=== PATIENT | male | born 2000 | race Two or more races ===

== ENCOUNTER 2019-11-13 17:37 | Emergency (ER) | payer SELFPAY ==
[~2019-11-13] VITALS: Ht 175.3 cm; Wt 72.6 kg
[2019-11-13 17:45] VITALS: BP 147/79
[2019-11-13] MEDS ORDERED: Thiamine 100mg tab ORAL ONE (17:45)
[2019-11-13] MEDS ORDERED: Naloxone 0.4mg/ml Inj IVP ONE (17:45)
--- NOTE | 2019-11-13 17:46 | Emergency Room Report ---
History of Present Illness General Chief Complaint: Overdose Source: Patient ([place]) Present Illness HPI Patient is a 19-year-old male with past medical history of polysubstance abuse who presents by ambulance with altered mental status. Patient endorses using "a lot more fentanyl this morning than [he] normally does ". He also admits to taking methamphetamines, smoking fentanyl, and drinking alcohol. He denies any subjective complaint of pain of the head, neck, back, chest, or abdomen, or any fever, rash, chills, diarrhea, dysuria, melena, hematochezia, or flank pain. According to EMS, patient was picked up from [employer] store prior to arrival. No narcan given prior to arrival. Patient currently only has complaint "I feel dehydrated" and "I need to poop" and "can everyone just leave me alone so I can sleep" The patient's symptoms were gradual onset, severity was moderate, duration since 1 day. Quality: dehydrated Past medical history: polysubstance abuse Past surgical history: denies Smoking: ++ Alcohol use: daily Drug use: ++meth, fentanyl Review of systems: CONST: No fevers or chills, No night sweats PULMONARY: No productive cough, No shortness of breath CARDIAC: No chest pain, No palpitations GI: No vomiting, No diarrhea , No melena_or_BRBPR : No dysuria, No hematuria, No discharge NEURO: No new_focal_weakness_or_numbness, No confusion, No vision changes 14 point Review of Systems is otherwise negative except per HPI Physical Exam: GENERAL: Awake_alert_ nontoxic, no acute distress Spo2 98% on RA -normal. Sleepy EYES: Pinpoint pupils. PERRLA. Extraocular muscles are intact. Conjunctivae clear. Lids without swelling ENT: External nose and ear normal_in_appearance. Oropharynx clear. Head_ atraumatic, Moist_oral_mucosa. No oral trauma NECK: No JVD. No meningismus. No thyromegaly. Supple. Trachea midline RESP: Normal respiratory effort. Symmetric rise. No stridor. Clear_to_ auscultation_No_rales_No_wheezes. No apnea CARDIAC: Regular rate and regular rhytm. No_significant pedal edema. No murmurs auscultated. ABDOMEN: Soft. Nondistended. Nontender_No_rebound_or_guarding. MSK: Normal muscle tone, without rigidity. Extremities without asymmetric deformity or swelling. SKIN: Warm and dry. No visible cyanosis or pallor. No rash. Old track hilliard to bilateral antecubital fossa. NEUROLOGIC: Alert, oriented x3 but sleepy. Motor_and_sensation_grossly_intact. No truncal ataxia. Gait_normal Psych: Normal mood and affect, normal judgment and insight - COORDINATION OF CARE Case was discussed with: Patient Any labs and imaging that were ordered were interpreted as part of the medical decision making: Medical Decision Making/Plan: Differential diagnosis includes opiate overdose, alcohol intoxication, alcohol withdrawal, hypoglycemia, drug intoxication or overdose, head injury, epidural hematoma, subdural hematoma, among others. Patient arrived sleepy with pinpoint pupils. No episodes of apnea or aspiration were noted. Narcan 0.4mg IV was given with resolution of sleepiness. His fingerstick glucose was found to be low so he was fed with improvement of his symptoms. Accuchek was WNL 1 hr later. Because of the patients initial altered mental status, imaging of the brain was obtained to rule out intracranial bleeding. CT was negative for ICH. Labs unremarkable. Trop negative. CK not drastically elevated. Salicylates/ tylenol negative. No stigmata or endocarditis found on exam. No cardiac murmur auscultated. The patient has no significant tremors or tachycardia, and their presentation seems most consistent with opiate OD. UDS is positive for meth The patient will be observed in the emergency department with serial neurologic exams for improvement in their mental status. Patient return to normal baseline. Patient refused social work/resources for homeless. All needs met. Patient was fed I counseled him extensively on the need to avoid doing drugs and drinking alcohol. - REASSESSMENT - After serial neurologic exams in the emergency department, the patients mental status significantly improved. The patient was able to follow commands and is clinically sober. They have no focal neurologic deficits and were able to ambulate with a steady gait without assistance. The patients presentation seems to be consistent with opiate OD, which has resolved, without any complications such as alcohol withdrawal, head injury, GI bleeding, or intracranial bleeding. The patient appears to be safe for discharge. Patient understands not to drive and appears able to care for themselves. (Lindsay Shi.[place]) Allergies: Coded Allergies: UNABLE TO ASSESS (Unverified , 11/13/19) COVID-19 Screening Contact w/high risk pt: No Experienced COVID-19 symptoms?: No COVID-19 Testing performed REVERSAL PRINT INSPECTOR: No (Lindsay Shi D.O.) Nursing Documentation-[facility] Past Medical History: Deferred (Lindsay Shi D.O.) Physical Exam Vital Signs Date Time Temp Pulse Resp B/P (MAP) Pulse Ox O2 Delivery O2 Flow Rate FiO2 11/13/19 17:29 98.1 92 16 150/80 (103) 93 Room Air Sp02 EP Interpretation: reviewed, normal (Lindsay Shi D.O.) Medical Decision Making Diagnostic Impression: Primary Impression: Opiate abuse, continuous Additional Impressions: Alcohol abuse Methamphetamine abuse Dehydration Hypoglycemia ER Course Assumed care of the patient from the previous provider at approximately 2200 hrs. Please refer to initial note for full history and physical exam. Briefly, 19-year-old male history of polysubstance abuse presents for evaluation of overdose suspected opiates and confirm methamphetamine. Patient is been treated with Narcan. No respiratory compromise. He remained somnolent and required further monitoring. He is now awake, alert, clinically sober and ambulating with a steady gait. Stable for outpatient follow-up. Previous provider provided a prescription for Narcan as well substance abuse resources. Stable for follow-up on outpatient basis. Instructed to return for new or worsening symptoms.. (Byron Lorenzana MD) EKG Diagnostic Results PA Scribe Text 12-lead EKG (interpreted by ) Time: 1800 Indication: Rhythm analysis Tracing visualized and Interpreted by . Rhythm: 86 Rate: 86 bpm QTc: 442 Morphology: No_significant_ST_elevations_or_depressions, No STEMI Impression: Normal_sinus_rhythm_without_significant_abnormality (Lindsay Shi D.O.) Chest X-Ray Diagnostic Results Chest X-Ray Diagnostic Results : [facility] [place] Chest X-Ray: Views: [ 1 ] view(s) Indication: Chest pain Findings: Normal heart size. Mediastinum normal. No infiltrate. Impression: NAD The X-ray(s) were independently viewed and interpreted contemporaneously Electronically signed by iLndsay singh DO (Lindsay Shi D.O.) CT/MRI/US Diagnostic Results CT/MRI/US Diagnostic Results : Impression CT Head no Contrast FINDINGS: Brain: Unremarkable. No hemorrhage. No significant white matter disease. No edema. Ventricles: Unremarkable. No ventriculomegaly. Bones/joints: Unremarkable. No acute fracture. Soft tissues: Unremarkable. Sinuses: Unremarkable as visualized. No acute sinusitis. Mastoid air cells: Unremarkable as visualized. No mastoid effusion. IMPRESSION: No acute intracranial pathology. (Lindsay Shi D.O.) Reevaluation Time: 18:11 Last Vital Signs Date Time Temp Pulse Resp B/P (MAP) Pulse Ox O2 Delivery O2 Flow Rate FiO2 11/13/19 17:29 98.1 92 16 150/80 (103) 93 Room Air Status: improved (Lindsay Shi D.O.) Disposition: HOME, SELF-CARE Admit Decision Time: 18:12 (Lindsay Shi D.O.) Condition: Stable Scripts Naloxone HCl (Narcan) 4 Mg [place] 4 MG NS ONCE for opiate od for 1 Day, #1 SPRAY Prov: Lindsay Shi D.O. 11/13/19 Patient Instructions: Alcohol Abuse and Nutrition, Alcohol Intoxication, Substance Use Disorder Additional Instructions: Instructions for patient/process coach: Follow up with your physician in 1-2 days. Stop doing methamphetamine. Stop doing narcotics. Stop drinking. All these things are bad for your health. Follow-up with your doctor sooner if your condition requires a more timely clinical reevaluation. Return to the emergency department immediately if you feel that your condition is worsening or if you have any new or concerning symptoms. Review your discharge instructions and take any prescriptions given as instructed. Lindsay Shi D.O. Nov 13, 2019 17:46 Byron Lorenzana MD Nov 13, 2019 22:42
--- NOTE | 2019-11-13 18:04 | Diagnostic Imaging Report ---
EXAM: CT Head Without Intravenous Contrast CLINICAL HISTORY: AMS TECHNIQUE: Axial computed tomography images of the head/brain without intravenous contrast. CTDI is 53 mGy and DLP is 992 mGy-cm. One or more of the following dose reduction techniques were used: automated exposure control, adjustment of the mA and/or kV according to patient size, use of iterative reconstruction technique. COMPARISON: No relevant prior studies available. FINDINGS: Brain: Unremarkable. No hemorrhage. No significant white matter disease. No edema. Ventricles: Unremarkable. No ventriculomegaly. Bones/joints: Unremarkable. No acute fracture. Soft tissues: Unremarkable. Sinuses: Unremarkable as visualized. No acute sinusitis. Mastoid air cells: Unremarkable as visualized. No mastoid effusion. IMPRESSION: No acute intracranial pathology.
[2019-11-13 18:19] LABS: BASOPHILS % (AUTO) 1.2 % (0.0-2.0); EOSINOPHILS % (AUTO) 3.7 % (0.0-3.0); HEMATOCRIT 41.6 % (42.0-52.0); HEMOGLOBIN 14.3 G/DL (14.2-18.0); LYMPHOCYTES % (AUTO) 38.9 % (20.0-45.0); MEAN CORPUSCULAR VOLUME 90 FL (80-99); MONOCYTES % (AUTO) 11.9 % (1.0-10.0); NEUTROPHILS % (AUTO) 44.3 % (45.0-75.0); PLATELET COUNT 310 K/UL (150-450); RED BLOOD COUNT 4.65 M/UL (4.70-6.10); RED CELL DISTRIBUTION WIDTH 11.7 % (11.6-14.8); WHITE BLOOD COUNT 9.5 K/UL (4.8-10.8)
[2019-11-13 18:31] LABS: ANION GAP 13 mmol/L (5-15); BLOOD UREA NITROGEN 16 mg/dL (7-18); CALCIUM 8.8 MG/DL (8.5-10.1); CARBON DIOXIDE 24 MMOL/L (21-32); CHLORIDE 107 MMOL/L (98-107); POTASSIUM 3.5 MMOL/L (3.5-5.1); SODIUM 144 MMOL/L (136-145)
[2019-11-13] MEDS ORDERED: NARCAN4 MG NS (18:37)
[2019-11-13 18:44] LABS: ALANINE AMINOTRANSFERASE 85 U/L (12-78); ALBUMIN 3.5 G/DL (3.4-5.0); ALBUMIN/GLOBULIN RATIO 0.8 (1.0-2.7); ALKALINE PHOSPHATASE 122 U/L (46-116); ASPARTATE AMINO TRANSFERASE 40 U/L (15-37); BILIRUBIN,TOTAL 0.4 MG/DL (0.2-1.0); CREATINE KINASE 96 U/L (26-308)
[2019-11-13 20:18] LABS: APPEARANCE,URINE CLEAR; BILIRUBIN, URINE NEGATIVE (NEGATIVE); GLUCOSE, URINE (UA) NEGATIVE (NEGATIVE); KETONES,URINE NEGATIVE (NEGATIVE); LEUKOCYTE ESTERASE ,URINE NEGATIVE (NEGATIVE); NITRITE,URINE NEGATIVE (NEGATIVE); PH,URINE 5 (4.5-8.0); PROTEIN,URINE NEGATIVE (NEGATIVE); UROBILINOGEN,URINE NORMAL MG/DL (0.0-1.0)
[2019-11-13 20:24] LABS: COLOR,URINE YELLOW
[2019-11-13] MEDS ORDERED: Naloxone 1mg/ml 2ml IVP ONE (21:15)
[2019-11-13 22:50] VITALS: BP 132/72
--- NOTE | 2019-11-14 11:48 | Diagnostic Imaging Report ---
Procedure: XRAY Chest 1v Reason for study: Reason For Exam: COUGH Comparison films: None. FINDINGS: A single one view chest is obtained. Vascularity is normal. The lung mayers are clear bilaterally. Cardiac and mediastinal silhouette are within normal limits. CP angles are sharp. The bony thorax appear unremarkable. IMPRESSION: NO ACUTE CARDIOPULMONARY DISEASE.
== END 2019-11-13 22:50 | disposition home or self-care (01) ==
LOC: EDBD 17:37 → EMR 17:50
DX: F11.10 Opioid abuse, uncomplicated (principal); F10.10 Alcohol abuse, uncomplicated; F15.10 Other stimulant abuse, uncomplicated; E86.0 Dehydration; E16.2 Hypoglycemia, unspecified
CPT/HCPCS: 36415; 70450; 71045; 80053; 80307; 81003; 82550; 84443; 84484; 85025; 93005; 96361; 96374; 96376; 99284; G0480; J2310; J7030